=== PATIENT | female | born 2000 | race Caucasian/White ===

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

== ENCOUNTER 2022-12-12 20:50 | Emergency (ER) | payer MEDICAID ==
[~2022-12-12] VITALS: Ht 165.1 cm; Wt 93.0 kg
[2022-12-12 21:10] VITALS: BP 135/69; PULSE 81; RESP 16; TEMP 97.8; O2SAT 99
[2022-12-13 00:56] VITALS: BP 135/69; PULSE 81; RESP 16; TEMP 97.8; O2SAT 99
== END 2022-12-13 00:56 | disposition home or self-care (01) ==
LOC: MED 20:50
DX: T16.1XXA Foreign body in right ear, initial encounter (principal); X58.XXXA Exposure to other specified factors, initial encounter; Y93.89 Activity, other specified; Y92.89 Other specified places as the place of occurrence of the external cause; Y99.8 Other external cause status
CPT/HCPCS: 69200; 99284